=== PATIENT | male | born 1960 | race Caucasian/White ===

== ENCOUNTER 2019-01-06 07:22 | Day surgery (SDC) | payer OTHER ==
[2019-01-01 11:33] VITALS: BMI 51.7
[~2019-01-06 07:22] MED LIST: LACTATED RINGERS 1,000 ML IV SCH
[2019-01-06 08:00] VITALS: RESP 16; TEMP 98.4
[2019-01-06] MEDS ORDERED: LIDOCAINE 1% 20 ML VIAL (10MG/ML) FOR IV START SQ ONE (08:00)
[2019-01-06 08:03] LABS: Glucose,Whole Blood 119 mg/dL (75-99)
[2019-01-06] MEDS ORDERED: PROPOFOL 10 MG/ML 20 ML VIAL IV ONE (08:41)
[2019-01-06] MEDS ORDERED: LIDOCAINE 1% INJ 10MG/ML (20 ML MDV) ONE (08:41)
[2019-01-06] MEDS ORDERED: fentaNYL (PF) 50 MCG/ML 2 ML AMP ONE (08:41)
--- NOTE | 2019-01-06 08:50 | P.GSHP ---
History of Present Illness H&P Date: 01/06/19 Chief Complaint: GERD, GI bleed This is a 58-year-old male who presents today for EGD and colonoscopy. Patient had issues with GERD and GI bleed. Past Medical History Past Medical History: Diabetes Mellitus, GERD/Reflux Additional Past Medical History / Comment(s): Current abdominal pain, hx polyps, states no hx of seizures, takes Depakote for sciatic pain History of Any Multi-Drug Resistant Organisms: None Reported Past Surgical History: Cholecystectomy Additional Past Surgical History / Comment(s): colonoscopy Past Anesthesia/Blood Transfusion Reactions: No Reported Reaction Smoking Status: Former smoker - Past Family History Mother Family Medical History: Cancer Father Family Medical History: Cancer Medications and Allergies Home Medications Medication Instructions Recorded Confirmed Type Divalproex [Depakote] 250 mg PO BID 01/01/19 01/06/19 History Pantoprazole [Protonix] 40 mg PO DAILY 01/01/19 01/06/19 History amLODIPine [Norvasc] 10 mg PO QAM 01/01/19 01/01/19 History metFORMIN HCL [Glucophage] 500 mg PO BID 01/01/19 01/06/19 History Allergies Allergy/AdvReac Type Severity Reaction Status Date / Time No Known Allergies Allergy Verified 01/01/19 11:22 Surgical - Exam Vital Signs Temp Pulse Resp BP Pulse Ox 98.4 F 91 16 151/68 93 L 01/06/19 07:53 01/06/19 07:53 01/06/19 07:53 01/06/19 07:53 01/06/19 07:53 - General well developed, well nourished, no distress - Eyes PERRL - ENT normal pinna - Neck no masses - Respiratory normal expansion - Cardiovascular Rhythm: regular - Abdomen Abdomen: soft, non tender Results - Labs Abnormal Lab Results - Last 24 Hours (Table) 01/06/19 Range/Units 07:57 POC Glucose (mg/dL) 119 H (75-99) mg/dL Assessment and Plan Assessment: GERD, GI bleed. We'll perform EGD and colonoscopy.
--- NOTE | 2019-01-06 09:12 | P.OP ---
Date of Procedure: 01/06/19 Preoperative Diagnosis: GERD GI bleed Postoperative Diagnosis: Antral gastritis Mild esophagitis Procedure(s) Performed: EGD Colonoscopy Anesthesia: MAC Surgeon: Henok Cristobal Pathology: other (Antrum, esophagus) Condition: stable Disposition: PACU Description of Procedure: The patient's placed on the endoscopy table in the lateral position. He received IV sedation. The gastroscope placed oropharynx and passed in the esophagus and into the stomach. Scope was then placed through the pylorus. F irst and second portion of the duodenum appeared normal. (Back the antrum this was mildly inflamed. A biopsies performed. The scope was then retroflexed and remainder of the stomach appeared normal. There is no significant hiatal hernia. The distal esophagus appeared mildly inflamed a biopsy was performed. The GE junction was at 40 cm. The proximal esophagus appeared normal. The scope was withdrawn for patient. Next digital rectal exam was performed. The prostate was symmetrical without nodules. The flexible colonoscope was then placed patient anus passed throughout the entire colon. The ileocecal valve was visualized. Cecum appeared normal. In the ascending colon there was a small polyp seen this removed with the cold forcep. Scope was withdrawn the remainder the ascending colon, transverse colon appeared normal. In the descending and sigmoid colon there is moderate diverticulosis. Scope was then brought back the rectum and this appeared normal. Scope was withdrawn for patient.
[2019-01-06 09:35] VITALS: BP 132/56; PULSE 66
== END 2019-01-06 09:41 | disposition home or self-care (01) ==
LOC: ORWHC2ENDO 07:22
PROVIDERS: ATTEND Surgery
DX: K29.51 Unspecified chronic gastritis with bleeding (principal); K22.70 Barrett's esophagus without dysplasia; K21.0 Gastro-esophageal reflux disease with esophagitis; D12.2 Benign neoplasm of ascending colon; K57.31 Diverticulosis of large intestine without perforation or abscess with bleeding; I10 Essential (primary) hypertension; E11.9 Type 2 diabetes mellitus without complications; M54.30 Sciatica, unspecified side; Z79.899 Other long term (current) drug therapy; Z79.84 Long term (current) use of oral hypoglycemic drugs; Z87.891 Personal history of nicotine dependence
CPT/HCPCS: 45380; 43239; J2001; J3010; J2704; 88305

== ENCOUNTER 2019-06-23 16:55 | Inpatient (IN) | payer OTHER ==
--- NOTE | 2019-06-23 17:24 | ED ---
Abdominal Pain HPI - General Chief Complaint: Abdominal Pain Stated Complaint: Appendicitis Time Seen by Provider: 06/23/19 17:00 Source: patient, RN notes reviewed, old records reviewed Mode of arrival: ambulatory Limitations: no limitations - History of Present Illness Initial Comments: This is a 58-year-old male the ER for evaluation. Said patient resents today for evaluation regarding abdominal pain right lower quadrant abdominal pain. Patient sent in for outpatient computed tomography scan showing positive appendicitis. Patient states his doctor sent him in for evaluation and management by surgery. Patient denies current fever mild nausea no vomiting. Patient has history of gallbladder removal MD Complaint: abdominal pain -: days(s) Location: RLQ Radiation: RLQ Migration to: no migration Severity: moderate Severity scale (1-10): 4 Quality: cramping, stabbing Consistency: constant Improves With: nothing Worsens With: nothing Associated Symptoms: nausea - Related Data Home Medications Medication Instructions Recorded Confirmed Divalproex [Depakote] 250 mg PO BID 01/01/19 01/06/19 Pantoprazole [Protonix] 40 mg PO DAILY 01/01/19 01/06/19 amLODIPine [Norvasc] 10 mg PO QAM 01/01/19 01/01/19 metFORMIN HCL [Glucophage] 500 mg PO BID 01/01/19 01/06/19 Allergies Allergy/AdvReac Type Severity Reaction Status Date / Time No Known Allergies Allergy Verified 06/23/19 16:59 Review of Systems ROS Statement: Those systems with pertinent positive or pertinent negative responses have been documented in the HPI. ROS Other: All systems not noted in ROS Statement are negative. Past Medical History Past Medical History: Diabetes Mellitus, GERD/Reflux Additional Past Medical History / Comment(s): Current abdominal pain, hx polyps, states no hx of seizures, takes Depakote for sciatic pain History of Any Multi-Drug Resistant Organisms: None Reported Past Surgical History: Cholecystectomy Additional Past Surgical History / Comment(s): colonoscopy Past Anesthesia/Blood Transfusion Reactions: No Reported Reaction Past Psychological History: No Psychological Hx Reported Smoking Status: Former smoker Past Alcohol Use History: Occasional Past Drug Use History: None Reported - Past Family History Mother Family Medical History: Cancer Father Family Medical History: Cancer General Exam Limitations: no limitations General appearance: alert, in no apparent distress, obese Head exam: Present: atraumatic, normocephalic, normal inspection Eye exam: Present: normal appearance, PERRL, EOMI. Absent: scleral icterus, conjunctival injection, periorbital swelling ENT exam: Present: normal exam, mucous membranes moist Neck exam: Present: normal inspection. Absent: tenderness, meningismus, lymphadenopathy Respiratory exam: Present: normal lung sounds bilaterally. Absent: respiratory distress, wheezes, rales, rhonchi, stridor Cardiovascular Exam: Present: regular rate, normal rhythm, normal heart sounds. Absent: systolic murmur, diastolic murmur, rubs, gallop, clicks GI/Abdominal exam: Present: soft, tenderness (Right lower quadrant tenderness), normal bowel sounds. Absent: distended, guarding, rebound, rigid Extremities exam: Present: normal inspection, full ROM, normal capillary refill. Absent: tenderness, pedal edema, joint swelling, calf tenderness Back exam: Present: normal inspection Neurological exam: Present: alert, oriented X3, CN II-XII intact Psychiatric exam: Present: normal affect, normal mood Skin exam: Present: warm, dry, intact, normal color. Absent: rash Course Vital Signs 06/23/19 16:57 Temperature 99.1 F Pulse Rate 90 Respiratory 18 Rate Blood Pressure 161/73 O2 Sat by Pulse 96 Oximetry - Reevaluation(s) Reevaluation #1: 06/23/19 17:32 Medical record transfer paperwork and computed tomography scan is reviewed Reevaluation #2: 06/23/19 17:32 Patient currently with pain control Medical Decision Making - Medical Decision Making September the ER for evaluation of severe lower quadrant abdominal pain. Positive appendicitis on computed tomography scan, will not for surgical evaluation and management - Radiology Data Radiology results: report reviewed (CT of pelvis is positive for appendicitis) Disposition Clinical Impression: Abdominal pain, Acute appendicitis Disposition: ADMITTED IP TO THIS HOSP Condition: Good Is patient prescribed a controlled substance at d/c from ED?: No Referrals: Julissa Humphrey DO [Primary Care Provider] - 1-2 days
[2019-06-23] MEDS ORDERED: MORPHINE SULFATE 4 MG/ML SYRINGE IVP PRN (17:25)
[2019-06-23] MEDS ORDERED: SODIUM CHLORIDE 0.9% 1,000 ML IV ONE (17:25)
[2019-06-23] MEDS ORDERED: MORPHINE SULFATE 4 MG/ML SYRINGE IVP STA (17:25)
[2019-06-23] MEDS ORDERED: ONDANSETRON 4 MG/2 ML VIAL IVP STA (17:25)
[2019-06-23] MEDS ORDERED: ONDANSETRON 4 MG/2 ML VIAL IVP PRN (17:25)
[2019-06-23] MEDS ORDERED: PANTOPRAZOLE 40 MG/10 ML VIAL IVP STA (17:26)
[2019-06-23] MEDS ORDERED: SODIUM CHLORIDE 0.9% 1,000 ML IV STA (18:06)
[2019-06-23 18:39] LABS: Basophils # (A) 0.1 k/uL (0-0.2); Basophils % (A) 1 %; Eosinophils # (A) 0.3 k/uL (0-0.7); Eosinophils % (A) 3 %; HCT 44.4 % (39.0-53.0); HGB 15.3 gm/dL (13.0-17.5); Lymphocytes # (A) 2.4 k/uL (1.0-4.8); Lymphocytes % (A) 19 %; MCH 29.3 pg (25.0-35.0); MCHC 34.4 g/dL (31.0-37.0); MCV 85.1 fL (80.0-100.0); Mean Platelet Volume 7.6; Monocytes # (A) 0.9 k/uL (0-1.0); Monocytes % (A) 7 %; Neutrophils # (A) 8.4 k/uL (1.3-7.7); Neutrophils % (A) 68 %; Platelet Count 213 k/uL (150-450); RBC 5.22 m/uL (4.30-5.90); WBC 12.3 k/uL (3.8-10.6)
[2019-06-23 18:49] LABS: ALT 41 U/L (21-72); AST 25 U/L (17-59); African American GFR (CKD) >90 (>60 ml/min/1.73 sqM); Albumin 4.1 g/dL (3.5-5.0); Alkaline Phosphatase 57 U/L (38-126); Amylase 45 U/L (30-110); Anion Gap 11 mmol/L; Blood Urea Nitrogen 19 mg/dL (9-20); Carbon Dioxide 27 mmol/L (22-30); Chloride 101 mmol/L (98-107); Creatine Kinase 77 U/L (55-170); Glucose 112 mg/dL (74-99); Potassium 4.1 mmol/L (3.5-5.1); Sodium 139 mmol/L (137-145); Total Protein 7.2 g/dL (6.3-8.2)
[2019-06-24] MEDS: DIVALPROEX 250 MG TABLET.DR PO SCH ×4 (00:09→22:04)
[2019-06-24] MEDS: amLODIPine 10 MG TAB PO SCH (09:00)
[2019-06-24] MEDS ORDERED: PANTOPRAZOLE 40 MG TABLET PO SCH (09:00)
[2019-06-24] MEDS: PANTOPRAZOLE 40 MG/10 ML VIAL IVP SCH (09:02)
[2019-06-24] MEDS ORDERED: IV FLUID CONTINUATION 1,000 ML IV ONE (09:09)
--- NOTE | 2019-06-24 09:14 | P.HPIM ---
History of Present Illness H&P Date: 06/24/19 Goyo Stallworth is a 58-year-old male with past medical history significant for type 2 diabetes, hypertension, GERD who presents to the hospital on the advice of PCP after outpatient CT noted acute appendicitis. He complains of right lower quadrant pain since Saturday which has waxed and waned in intensity and kept him from sleeping Saturday night. He also complains of poor appetite. Denies fevers chills nausea or vomiting. He saw his PCP yesterday and had an outpatient CT which showed uncomplicated appendicitis. Patient notes he has lost 50 pounds over the past 7 months intentionally through changing his diet to include more vegetables and fiber. He has a past surgical history of cholecys tectomy. Last colonoscopy in October 2018 and unremarkable. In the ED, vitals stable. WBC 12.3. Today he continues to complain of right lower quadrant pain and is eager to have his surgery. Past Medical History Past Medical History: Diabetes Mellitus, GERD/Reflux Additional Past Medical History / Comment(s): Current abdominal pain, hx polyps, states no hx of seizures, takes Depakote for sciatic pain History of Any Multi-Drug Resistant Organisms: None Reported Past Surgical History: Cholecystectomy Additional Past Surgical History / Comment(s): colonoscopy Past Anesthesia/Blood Transfusion Reactions: No Reported Reaction Past Psychological History: No Psychological Hx Reported Smoking Status: Former smoker Past Alcohol Use History: Occasional Additional Past Alcohol Use History / Comment(s): quit smoking 2009, smoked 1ppd from age 23 Past Drug Use History: None Reported - Past Family History Mother Family Medical History: Cancer Father Family Medical History: Cancer Medications and Allergies Home Medications Medication Instructions Recorded Confirmed Type Divalproex [Depakote] 250 mg PO BID 01/01/19 06/23/19 History Pantoprazole [Protonix] 40 mg PO DAILY 01/01/19 06/23/19 History amLODIPine [Norvasc] 10 mg PO DAILY 01/01/19 06/23/19 History metFORMIN HCL [Glucophage] 500 mg PO BID 01/01/19 06/23/19 History Allergies Allergy/AdvReac Type Severity Reaction Status Date / Time No Known Allergies Allergy Verified 06/23/19 17:35 Physical Exam Vitals: Vital Signs Temp Pulse Pulse Resp BP BP Pulse Ox 06/24/19 08:54 98.8 F 62 17 151/68 95 06/24/19 01:35 98.3 F 16 134/72 94 L 06/24/19 01:31 18 06/23/19 19:30 98.4 F 18 134/72 94 L 06/23/19 16:57 99.1 F 90 18 161/73 96 Intake and Output 06/23/19 06/24/19 06/24/19 22:59 06:59 14:59 Other: # Voids 2 2 Weight 140.614 kg General: non toxic, no distress, appears at stated age Derm: warm, dry Head: atraumatic, normocephalic, symmetric Eyes: EOMI, no lid lag, anicteric sclera Mouth: no lip lesion, mucus membranes moist Cardiovascular: S1S2 reg, no murmur, positive posterior tibial pulse bilateral, Lungs: CTA bilateral, no rhonchi, no rales , no accessory muscle use Abdominal: soft, RLQ tenderness palpation, no appreciable organomegaly Ext: no gross muscle atrophy, no edema, no contractures Neuro: CN II-XI grossly intact, no focal neuro deficits Psych: Alert, oriented, appropriate affect Results CBC & Chem 7: 06/23/19 18:22 06/23/19 18:22 Labs: Abnormal Lab Results - Last 24 Hours (Table) 06/23/19 06/23/19 Range/Units 18:22 18:22 WBC 12.3 H (3.8-10.6) k/uL Neutrophils # 8.4 H (1.3-7.7) k/uL Glucose 112 H (74-99) mg/dL Thrombosis Risk Factor Assmnt - Choose All That Apply Each Factor Represents 1 point: Age 41-60 years, Obesity (BMI >25) Thrombosis Risk Factor Assessment Total Risk Factor Score: 2 Thrombosis Risk Factor Assessment Level: Low Risk Assessment and Plan (1) Abdominal pain Current Visit: Yes Status: Acute Code(s): R10.9 - UNSPECIFIED ABDOMINAL PAIN SNOMED Code(s): 63033394 (2) Acute appendicitis Current Visit: Yes Status: Acute Code(s): K35.80 - UNSPECIFIED ACUTE APPENDICITIS SNOMED Code(s): 74668422 (3) GERD (gastroesophageal reflux disease) Current Visit: Yes Status: Acute Code(s): K21.9 - GASTRO-ESOPHAGEAL REFLUX DISEASE WITHOUT ESOPHAGITIS SNOMED Code(s): 851518513 (4) HTN (hypertension) Current Visit: Yes Status: Acute Code(s): I10 - ESSENTIAL (PRIMARY) HYPERTENSION SNOMED Code(s): 35425876 Plan: 1. Acute appendicitis. NPO. Management per surgery. Pain control 2. GERD. Continue Protonix 3. Hypertension. Continue Norvasc
[2019-06-24] MEDS ORDERED: DEXAMETHASONE SOD PHOSPHATE 10 MG/ML 1 ML VIAL IV ONE (09:18)
[2019-06-24] MEDS ORDERED: ONDANSETRON 4 MG/2 ML VIAL IVP ONE (09:18)
[2019-06-24 09:26] LABS: Glucose,Whole Blood 114 mg/dL (75-99)
--- NOTE | 2019-06-24 09:33 | P.GSCN ---
History of Present Illness Consult date: 06/24/19 Reason for Consult: Appendicitis Requesting physician: Henok Cristobal History of present illness: This a 58-year-old male who was diagnosed with appendicitis on CAT scan performed at [facility]. Patient was admitted to Dr. burt. Patient will undergo laparoscopic appendectomy today. The patient has had complaints of intermittent right lower quadrant pain for several months. Past Medical History Past Medical History: Diabetes Mellitus, GERD/Reflux Additional Past Medical History / Comment(s): Current abdominal pain, hx polyps, states no hx of seizures, takes Depakote for sciatic pain History of Any Multi-Drug Resistant Organisms: None Reported Past Surgical History: Cholecystectomy Additional Past Surgical History / Comment(s): colonoscopy Past Anesthesia/Blood Transfusion Reactions: No Reported Reaction Past Psychological History: No Psychological Hx Reported Smoking Status: Former smoker Past Alcohol Use History: Occasional Additional Past Alcohol Use History / Comment(s): quit smoking 2009, smoked 1ppd from age 23 Past Drug Use History: None Reported - Past Family History Mother Family Medical History: Cancer Father Family Medical History: Cancer Medications and Allergies Home Medications Medication Instructions Recorded Confirmed Type Divalproex [Depakote] 250 mg PO BID 01/01/19 06/23/19 History Pantoprazole [Protonix] 40 mg PO DAILY 01/01/19 06/23/19 History amLODIPine [Norvasc] 10 mg PO DAILY 01/01/19 06/23/19 History metFORMIN HCL [Glucophage] 500 mg PO BID 01/01/19 06/23/19 History Allergies Allergy/AdvReac Type Severity Reaction Status Date / Time No Known Allergies Allergy Verified 06/23/19 17:35 Surgical - Exam Vital Signs Temp Pulse Resp BP Pulse Ox 99.1 F 90 18 161/73 96 06/23/19 16:57 06/23/19 16:57 06/23/19 16:57 06/23/19 16:57 06/23/19 16:57 - General Morbid obesity BMI 46 well developed, well nourished - Eyes PERRL - ENT normal pinna - Neck no masses - Respiratory normal expansion - Cardiovascular Rhythm: regular - Abdomen Mild right lower quadrant pain Abdomen: soft Results - Labs 06/23/19 18:22 06/23/19 18:22 Abnormal Lab Results - Last 24 Hours (Table) 06/23/19 06/23/1919 Range/Units 18:22 18:22 09:15 WBC 12.3 H (3.8-10.6) k/uL Neutrophils # 8.4 H (1.3-7.7) k/uL Glucose 112 H (74-99) mg/dL POC Glucose (mg/dL) 114 H (75-99) mg/dL Diabetes panel 06/23/19 Range/Units 18:22 Sodium 139 (137-145) mmol/L Potassium 4.1 (3.5-5.1) mmol/L Chloride 101 (98-107) mmol/L Carbon Dioxide 27 (22-30) mmol/L BUN 19 (9-20) mg/dL Creatinine 0.80 (0.66-1.25) mg/dL Glucose 112 H (74-99) mg/dL Calcium 9.0 (8.4-10.2) mg/dL AST 25 (17-59) U/L ALT 41 (21-72) U/L Alkaline Phosphatase 57 (38-126) U/L Total Protein 7.2 (6.3-8.2) g/dL Albumin 4.1 (3.5-5.0) g/dL Calcium panel 06/23/19 Range/Units 18:22 Calcium 9.0 (8.4-10.2) mg/dL Albumin 4.1 (3.5-5.0) g/dL Pituitary panel 06/23/19 Range/Units 18:22 Sodium 139 (137-145) mmol/L Potassium 4.1 (3.5-5.1) mmol/L Chloride 101 (98-107) mmol/L Carbon Dioxide 27 (22-30) mmol/L BUN 19 (9-20) mg/dL Creatinine 0.80 (0.66-1.25) mg/dL Glucose 112 H (74-99) mg/dL Calcium 9.0 (8.4-10.2) mg/dL Adrenal panel 06/23/19 Range/Units 18:22 Sodium 139 (137-145) mmol/L Potassium 4.1 (3.5-5.1) mmol/L Chloride 101 (98-107) mmol/L Carbon Dioxide 27 (22-30) mmol/L BUN 19 (9-20) mg/dL Creatinine 0.80 (0.66-1.25) mg/dL Glucose 112 H (74-99) mg/dL Calcium 9.0 (8.4-10.2) mg/dL Total Bilirubin 1.0 (0.2-1.3) mg/dL AST 25 (17-59) U/L ALT 41 (21-72) U/L Alkaline Phosphatase 57 (38-126) U/L Total Protein 7.2 (6.3-8.2) g/dL Albumin 4.1 (3.5-5.0) g/dL Assessment and Plan Assessment: Acute appendicitis diagnosed on CAT scan. Patient will undergo laparoscopic appendectomy
[2019-06-24] MEDS ORDERED: HEPARIN SODIUM,PORCINE 5,000 UNIT/ML 1 ML VIAL SQ ONE (09:38)
[2019-06-24] MEDS ORDERED: LIDOCAINE 1% INJ 10MG/ML (20 ML MDV) ONE (09:40)
[2019-06-24] MEDS ORDERED: DEXAMETHASONE SOD PHOS (MDV) 100 MG/10 ML VIAL ONE (09:40)
[2019-06-24] MEDS ORDERED: GLYCOPYRROLATE 0.2 MG/ML 2 ML VIAL ONE (09:40)
[2019-06-24] MEDS ORDERED: MIDAZOLAM 2 MG/2 ML VIAL ONE (09:40)
[2019-06-24] MEDS ORDERED: NEOSTIGMINE 1 MG/ML 10 ML VIAL ONE (09:40)
[2019-06-24] MEDS ORDERED: ROCURONIUM BROMIDE 10 MG/ML 10 ML VIAL IV ONE (09:40)
[2019-06-24] MEDS ORDERED: PROPOFOL 10 MG/ML 20 ML VIAL IV ONE (09:40)
[2019-06-24] MEDS ORDERED: fentaNYL (PF) 50 MCG/ML 2 ML AMP ONE (09:40)
[2019-06-24] MEDS ORDERED: BUPIVACAIN-EPI 0.25%-1:200,000 30 ML VIAL SQ ONE (10:14)
[2019-06-24] MEDS ORDERED: LACTATED RINGERS 1,000 ML IV ONE ×2 (10:41→11:04)
[2019-06-24] MEDS ORDERED: traMADol 50 MG TAB PO PRN (11:04)
[2019-06-24] MEDS ORDERED: NALOXONE 0.4 MG/ML 1 ML VIAL IV PRN (11:04)
[2019-06-24] MEDS ORDERED: HYDROmorphone 0.5 MG/0.5 ML SYRINGE IVP PRN (11:04)
[2019-06-24] MEDS ORDERED: ACETAMINOPHEN TAB 325 MG TAB PO PRN (11:04)
--- NOTE | 2019-06-24 11:04 | P.OP ---
Date of Procedure: 06/24/19 Preoperative Diagnosis: Acute appendicitis Postoperative Diagnosis: Acute and chronic appendicitis Procedure(s) Performed: Laparoscopic appendectomy Anesthesia: KESHIA Surgeon: Henok Cristobal Estimated Blood Loss (ml): 5 Pathology: other (Appendix) Condition: stable Disposition: PACU Description of Procedure: The patient's placed on the operating table in the supine position. The patient received general anesthesia. The abdomen was prepped and draped in the usual sterile fashion. The skin was anesthetized 1% local Xylocaine at the trocar sites. Using an 11 blade the skin was incised at the umbilicus. The umbilicus was grasped with a [place] clamp and then a Veress needle was placed into the peritoneal cavity. Position of the Veress needle was confirmed with positive drop test. After adequate insufflation a 5 mm trocar was placed into the peritoneal cavity. The abdomen was further insufflated. And then the laparoscope was placed in the peritoneal cavity. Next a 5 mm trocar was placed in the midline suprapubic position. And then a 10 mm trocar was placed in the midline epigastric position. The patient was rotated with the right side up and in Trendelenburg. The appendix was visualized. The appendix appeared to be inflamed. The appendix was grasped and then using the Harmonic scissors the mesoappendix was divided. A PDS Endoloop was then placed around the base of the appendix. And then the appendix was divided using Harmonic scissors. The appendix was placed into an Endo Catch and brought out through the 10 mm trocar site. The abdomen was irrigated. There is no bleeding seen. The trochars withdrawn. The skin was closed interrupted 3-0 Monocryl suture. Dermabond dressing was applied. Patient was sent to recovery room in stable condition.
[2019-06-24] MEDS: HYDROmorphone 1 MG/ML 1 ML SYRINGE IVP ONE ×2 (11:05→11:11)
[2019-06-24 11:17] LABS: Glucose,Whole Blood 126 mg/dL (75-99)
[2019-06-24] MEDS: KETOROLAC 30 MG/ML 1 ML VIAL IVP SCH ×2 (11:25→19:07)
[2019-06-24] MEDS: DOCUSATE 100 MG CAP PO SCH (22:04)
[2019-06-24] MEDS: HYDROcodone/APAP 5-325MG 1 EACH TAB PO PRN (22:04)
[2019-06-25] MEDS: KETOROLAC 30 MG/ML 1 ML VIAL IVP SCH ×3 (00:30→11:15)
[2019-06-25 01:42] VITALS: PULSE 62
[2019-06-25] MEDS: HYDROcodone/APAP 5-325MG 1 EACH TAB PO PRN ×2 (05:21→11:13)
[2019-06-25 07:59] VITALS: BP 161/62; RESP 12; TEMP 98
[2019-06-25] MEDS ORDERED: ENOXAPARIN 40 MG/0.4 ML SYRINGE SQ SCH (09:00)
[2019-06-25] MEDS: DOCUSATE 100 MG CAP PO SCH (09:34)
[2019-06-25] MEDS: amLODIPine 10 MG TAB PO SCH (09:34)
[2019-06-25] MEDS: PANTOPRAZOLE 40 MG/10 ML VIAL IVP SCH (09:34)
[2019-06-25] MEDS: DIVALPROEX 250 MG TABLET.DR PO SCH (09:34)
--- NOTE | 2019-06-25 14:48 | P.DS ---
Providers Date of admission: 06/23/19 17:25 Expected date of discharge: 06/25/19 Attending physician: Henok Cristobal Consults: 06/23/19 18:38 Consult Physician Routine Consulting Provider: Alonso Humphrey Consult Reason/Comments: known Do you want consulting provider notified?: Yes 06/24/19 09:34 Consult Physician Routine Consulting Provider: Henok Cristobal Consult Reason/Comments: Acute appendicitis Do you want consulting provider notified?: Already Contacted Primary care physician: Julissa Humphrey [facility] Course: 58-year-old male presented to the emergency room a chief complaint of abdominal pain. Patient was found to have acute appendicitis. Patient underwent laparoscopic appendectomy with Dr. Cristobal on 06/24/2019. Patient is doing well postoperatively without any immediate complications. Pain is controlled on oral medications. Vital signs have been stable. Tolerating diet without nausea or vomiting. He is stable for discharge home today per Dr. Cristobal. Please see EMR for further hospital course details. Discharge diagnosis 1. Abdominal pain 2. Acute appendicitis Nurse practitioner note has been reviewed by physician. Signing provider agrees with the documented findings, assessment, and plan of care. Patient Condition at Discharge: Stable Plan - Discharge Summary Discharge Rx Participant: No New Discharge Prescriptions: New Hydrocodone/Acetaminophen [Ely 5-325] 1 tab PO Q6HR PRN 3 Days #12 tab PRN Reason: Pain Levofloxacin [Levaquin] 750 mg PO DAILY #7 tab No Action metFORMIN HCL [Glucophage] 500 mg PO BID Divalproex [Depakote] 250 mg PO BID amLODIPine [Norvasc] 10 mg PO DAILY Pantoprazole [Protonix] 40 mg PO DAILY Discharge Medication List Divalproex [Depakote] 250 mg PO BID 01/01/19 [History] Pantoprazole [Protonix] 40 mg PO DAILY 01/01/19 [History] amLODIPine [Norvasc] 10 mg PO DAILY 01/01/19 [History] metFORMIN HCL [Glucophage] 500 mg PO BID 01/01/19 [History] Hydrocodone/Acetaminophen [Ely 5-325] 1 tab PO Q6HR PRN 3 Days #12 tab 06/25/19 [Rx] Levofloxacin [Levaquin] 750 mg PO DAILY #7 tab 06/25/19 [Rx] Follow up Appointment(s)/Referral(s): Julissa Humphrey DO [Primary Care Provider] - 06/29/19 9:00 am Henok Cristobal MD [STAFF PHYSICIAN] - 07/02/19 3:30 pm Patient Instructions/Handouts: Laparoscopic Appendectomy (DC) Activity/Diet/Wound Care/Special Instructions: No driving while taking [place] No lifting over 10 pounds You may shower. No soaking or tub baths Very light activity until you are reevaluated at your follow up appointment with your surgeon
== END 2019-06-25 14:32 | disposition home or self-care (01) | DRG 342 ==
LOC: EC 16:55 → OBSVTOIN 17:25 → 4SSUR 17:25
PROVIDERS: ADMIT Surgery; ATTEND Surgery
PROC: 0DTJ4ZZ Resection of Appendix, Percutaneous Endoscopic Approach (ICD-10-PCS; principal; 2019-06-24 08:30)
DX: K35.80 Unspecified acute appendicitis (principal); Z68.42 Body mass index [BMI] 45.0-49.9, adult; E66.01 Morbid (severe) obesity due to excess calories; E11.9 Type 2 diabetes mellitus without complications; I10 Essential (primary) hypertension; K21.9 Gastro-esophageal reflux disease without esophagitis; M54.30 Sciatica, unspecified side; Z87.891 Personal history of nicotine dependence; Z79.84 Long term (current) use of oral hypoglycemic drugs; Z79.899 Other long term (current) drug therapy; Z90.49 Acquired absence of other specified parts of digestive tract
CPT/HCPCS: 80053; 82150; 82550; 83605; 83690; 85025; 88304; 96374; 96375; 99285

== ENCOUNTER 2021-05-26 06:58 | Day surgery (SDC) | payer OTHER ==
[2021-05-23 09:28] VITALS: BMI 48.7
[2021-05-26 07:17] VITALS: TEMP 98.8
[2021-05-26] MEDS ORDERED: LIDOCAINE 1% (10MG/ML) FOR IV START INTRADERMA ONE (07:28)
[2021-05-26] MEDS ORDERED: LACTATED RINGERS 1,000 ML IV ONE (07:28)
[2021-05-26 07:29] LABS: Glucose,Whole Blood 129 mg/dL (75-99)
[2021-05-26] MEDS ORDERED: KETAMINE 10 MG/ML 20 ML VIAL ONE (07:54)
[2021-05-26] MEDS ORDERED: MIDAZOLAM 2 MG/2 ML VIAL ONE (07:54)
[2021-05-26] MEDS ORDERED: PROPOFOL 10 MG/ML 20 ML VIAL IV ONE (07:54)
--- NOTE | 2021-05-26 07:59 | P.GSHP ---
History of Present Illness H&P Date: 05/26/21 Chief Complaint: History of colon polyps Is a 60-year-old male presents today for colonoscopy. Patient history of previous colonic polyps. He denies any significant GI complaints Past Medical History Past Medical History: Diabetes Mellitus, Hypertension Additional Past Medical History / Comment(s): hx colon polyps History of Any Multi-Drug Resistant Organisms: None Reported Past Surgical History: Cholecystectomy Additional Past Surgical History / Comment(s): colonoscopies Past Anesthesia/Blood Transfusion Reactions: No Reported Reaction Past Psychological History: No Psychological Hx Reported Smoking Status: Former smoker Past Alcohol Use History: Occasional Additional Past Alcohol Use History / Comment(s): quit smoking 2009, smoked 1ppd from age 23 Past Drug Use History: None Reported - Past Family History Mother Family Medical History: Cancer Additional Family Medical History / Comment(s): lung cancer Father Family Medical History: Cancer Additional Family Medical History / Comment(s): colon cancer Medications and Allergies Home Medications Medication Instructions Recorded Confirmed Type amLODIPine [Norvasc] 10 mg PO DAILY 01/01/19 05/23/21 History Lisinopril [Zestril] 10 mg PO DAILY 05/23/21 05/23/21 History metFORMIN HCL [Glucophage XR] 750 mg PO BID 05/23/21 05/26/21 History Allergies Allergy/AdvReac Type Severity Reaction Status Date / Time No Known Allergies Allergy Verified 05/23/21 09:13 Surgical - Exam Vital Signs Temp Pulse Resp BP Pulse Ox 98.8 F 86 18 155/73 93 L 05/26/21 07:15 05/26/21 07:15 05/26/21 07:15 05/26/21 07:15 05/26/21 07:15 - General well developed, well nourished, no distress - Eyes PERRL - ENT normal pinna - Neck no masses - Respiratory normal expansion - Cardiovascular Rhythm: regular - Abdomen Abdomen: soft, non tender Results - Labs Abnormal Lab Results - Last 24 Hours (Table) 05/26/21 Range/Units 07:22 POC Glucose (mg/dL) 129 H (75-99) mg/dL Assessment and Plan Assessment: History of colonic Polyps. We'll perform colonoscopy
--- NOTE | 2021-05-26 08:16 | P.OP ---
Date of Procedure: 05/26/21 Preoperative Diagnosis: History of colon polyps Postoperative Diagnosis: Rectal polyp Diverticulosis Procedure(s) Performed: Colonoscopy Anesthesia: MAC Surgeon: Henok Cristobal Pathology: other (Rectal polyp) Condition: stable Disposition: PACU Description of Procedure: The patient was placed on the endoscopy table in the lateral position. He received IV sedation. Digital rectal exam was performed which revealed no abnormalities. The prostate was symmetric without nodules. Flexible colonoscope was then placed patient anus passed rotator colon. Ileocecal valve was visualized. The cecum, ascending and transverse colon appeared normal. The descending; had significant diverticular changes. Scope was then brought back the rectum and a [place] polyp was seen. Removed with snare. Scope was then brought back through the anus there is no internal or external hemorrhoids. The patient
[2021-05-26 08:18] VITALS: RESP 16
[2021-05-26 08:31] VITALS: BP 154/89; PULSE 76
== END 2021-05-26 08:59 | disposition home or self-care (01) ==
LOC: ORWHC2ENDO 06:58
PROVIDERS: ATTEND Surgery
DX: K62.1 Rectal polyp (principal); D12.8 Benign neoplasm of rectum; E11.9 Type 2 diabetes mellitus without complications; Z79.84 Long term (current) use of oral hypoglycemic drugs; I10 Essential (primary) hypertension; Z87.891 Personal history of nicotine dependence; Z86.010 Personal history of colon polyps; Z90.49 Acquired absence of other specified parts of digestive tract; Z80.1 Family history of malignant neoplasm of trachea, bronchus and lung
CPT/HCPCS: 45385; 88305; J2250; J2704

== ENCOUNTER → 2021-07-17 | Outpatient (CLI) | payer OTHER ==
--- NOTE | 2021-07-17 12:33 | P.STRESS ---
- Stress Test Note Stress Test Results/Findings: Exam Performed: NM stress cardiolite complete Exam Date: 07/17/21 Reason for Exam: Shortness of breath Height: 5 ft 9 in Weight: 154.221 kg Protocol: Thanh Stage: 3 Duration of Exercise: 7:30 Resting Heart Rate: 88 Resting Blood Pressure: 183/83 Maximum Achieved Heart Rate: 144 Maximum Achieved Blood Pressure: 213/57 85% PMHR: 137 100% PMHR: 161 METS: na Technologist Comment: Stress Test Results/Findings: Patient underwent exercise stress Cardiolite with a Thanh protocol treadmill stress test. Patient exercised into Stage 3 for a total of 7 minutes and 30 seconds. Patient's maximum heart rate was 144 which represented 89% age- predicted maximum heart rate. There was no chest pain noted with stress. Stress EKG findings: At baseline patient's EKG showed sinus rhythm, normal axis, no significant ST or T wave abnormalities. At peak exercise, EKG showed significant change from base line. Conclusions: 1. Normal EKG response to exercise without evidence of inducible ischemia. 2. Fair exercise capacity. 3. Nuclear portion to be reported separately
--- NOTE | 2021-07-18 07:29 | NM ---
EXAMINATION TYPE: NM stress cardiolite complete DATE OF EXAM: 07/17/2021 COMPARISON: NONE HISTORY: Chest pain, short of breath TECHNIQUE: After the intravenous administration of 10.8 mCi Tc 99m Sestamibi - Cardiolite resting SP ECT images acquired 60 minutes post injection. At peak stress 25.9 mCi Tc 99m Sestamibi - Stress images obtained 15 minutes post injection The patient was stressed Thanh protocol . Greater than 85% predicted maximum heart rate was achieved. FINDINGS: There is a large fixed defect along the inferior wall on both rest and stress images. This has some extends into the lateral wall near the cardiac apex. Findings appear matched. Stress-induced ischemic changes are not identified. No reversible stress defects on Spect images Wall motion is normal. Ejection fraction is calculated to be 50 %. IMPRESSION: 1. Large fixed defect along the inferior wall and some extent into the lateral wall near the cardiac apex compatible with prior infarct. Correlate with EKG changes. 2. Borderline ejection fraction diminished at 50%. Normal is 50%.
--- NOTE | 2021-07-18 08:24 | EST ---
Stress Test Results/Findings: Exam Performed: [place] stress cardiolite complete Exam Date: 07/17/21 Reason for Exam: Shortness of breath Height: 5 ft 9 in Weight: 154.221 kg Protocol: Thanh Stage: 3 Duration of Exercise: 7:30 Resting Heart Rate: 88 Resting Blood Pressure: 183/83 Maximum Achieved Heart Rate: 144 Maximum Achieved Blood Pressure: 213/57 85% PMHR: 137 100% PMHR: 161 METS: na Technologist Comment: Stress Test Results/Findings: Patient underwent exercise stress Cardiolite with a Thanh protocol treadmill stress test. Patient exercised into Stage 3 for a total of 7 minutes and 30 seconds. Patient's maximum heart rate was 144 which represented 89% age- predicted maximum heart rate. There was no chest pain noted with stress. Stress EKG findings: At baseline patient's EKG showed sinus rhythm, normal axis, no significant ST or T wave abnormalities. At peak exercise, EKG showed significant change from baseline. Conclusions: 1. Normal EKG response to exercise without evidence of inducible ischemia. 2. Fair exercise capacity. 3. Nuclear portion to be reported separately MTDD
== END | disposition home or self-care (01) ==
LOC: RADNMMAIN 08:41
PROVIDERS: ATTEND Family Medicine
DX: R06.02 Shortness of breath (principal); R07.9 Chest pain, unspecified
CPT/HCPCS: 93017; 78452; A9500

== ENCOUNTER → 2023-04-30 | Outpatient (CLI) | payer OTHER ==
[2023-04-30 16:28] LABS: Appearance,Urine Clear (Clear); Bilirubin,Urine Negative (Negative); Blood,Urine Negative (Negative); Color,Urine Yellow (Yellow); Ketones,Urine Negative (Negative); Nitrite,Urine Negative (Negative); PH, Urine 5.5; Specific Gravity,Urine 1.019 (1.001-1.030); Urobilinogen,Urine 0.2 E.U./DL
[2023-04-30 16:37] LABS: Basophils # (A) 0.06 X 10*3/uL (0.00-0.10); Basophils % (A) 0.9 %; Eosinophils # (A) 0.33 X 10*3/uL (0.04-0.35); Eosinophils % (A) 4.8 %; HCT 45.6 % (39.6-50.0); HGB 15.6 d/dL (12.0-15.0); Lymphocytes # (A) 2.06 X 10*3/uL (0.90-5.00); MCH 30.4 pg (27.0-32.0); MCHC 34.2 d/dL (32.0-37.0); MCV 88.7 FL (80.0-97.0); Mean Platelet Volume 10.5 FL (9.5-12.2); Monocytes # (A) 0.86 X 10*3/uL (0.20-1.00); Monocytes % (A) 12.5 %; NRBC Per 100 WBC 0 X 10*3/uL (0.00-0.01); Neutrophils # (A) 3.54 X 10*3/uL (1.80-7.70); Neutrophils % (A) 51.7 %; Platelet Count 185 X 10*3/uL (140-440); RBC 5.14 X 10*6/uL (4.40-5.60); RDW 13.2 % (11.5-14.5); WBC 6.86 X 10*3/uL (4.50-10.00)
[2023-04-30 16:55] LABS: BUN/Creat Ratio 25.62 Ratio (12.00-20.00); Blood Urea Nitrogen 20.5 mg/dL (9.0-27.0); Calcium 9.1 mg/dL (8.7-10.3); Carbon Dioxide 25.1 mmol/L (21.6-31.8); Chloride 101 mmol/L (96-109); Glucose 127 mg/dL (70-110); Potassium 4.8 mmol/L (3.5-5.5); Sodium 137 mmol/L (135-145)
== END | disposition home or self-care (01) ==
LOC: LABPAT 09:11
PROVIDERS: ATTEND Urology
DX: Z01.812 Encounter for preprocedural laboratory examination (principal); C61 Malignant neoplasm of prostate; R35.0 Frequency of micturition
CPT/HCPCS: 80048; 81003; 85025; 87086

== ENCOUNTER 2024-02-20 06:49 | Day surgery (SDC) | payer OTHER ==
[2024-02-20 07:23] LABS: Glucose,Whole Blood 127 mg/dL (70-110)
[2024-02-20] MEDS: LACTATED RINGERS 1,000 ML IV ONE ×2 (07:24→08:05)
[2024-02-20 07:50] VITALS: TEMP 98
[2024-02-20] MEDS ORDERED: PROPOFOL 10 MG/ML 20 ML VIAL IV ONE (08:06)
--- NOTE | 2024-02-20 08:18 | P.GSHP ---
History of Present Illness H&P Date: 02/20/24 Chief Complaint: family history of colon cancer this a 63-year-old male presents today for colonoscopy. Patient has a strong family. Colon cancer. His father had rectal cancer. Past Medical History Past Medical History: Diabetes Mellitus, Hypertension, Prostate Disorder Additional Past Medical History / Comment(s): hx colon polyps, prostate cancer - radiation complete 06/12 History of Any Multi-Drug Resistant Organisms: None Reported Past Surgical History: Cholecystectomy Additional Past Surgical History / Comment(s): colonoscopies, space O[facility] 2022 Past Anesthesia/Blood Transfusion Reactions: No Reported Reaction Smoking Status: Former smoker - Past Family History Mother Family Medical History: Cancer Additional Family Medical History / Comment(s): lung cancer Father Family Medical History: Cancer Additional Family Medical History / Comment(s): colon cancer Medications and Allergies Home Medications Medication Instructions Recorded Confirmed Type amLODIPine [Norvasc] 10 mg PO QAM 01/01/19 02/18/24 History lisinopriL [Zestril] 10 mg PO QAM 05/23/21 02/18/24 History Semaglutide [Ozempic] 2 mg SQ TUFR 05/01/23 02/18/24 History Celecoxib [CeleBREX] 200 mg PO DAILY 02/18/24 02/18/24 History Tamsulosin HCl [Flomax] 0.4 mg PO QAM 02/18/24 02/18/24 History Allergies Allergy/AdvReac Type Severity Reaction Status Date / Time No Known Allergies Allergy Verified 02/18/24 14:10 Surgical - Exam Vital Signs Temp Pulse Resp BP Pulse Ox 98 F 78 18 142/78 97 02/20/24 07:24 02/20/24 07:24 02/20/24 07:24 02/20/24 07:24 02/20/24 07:24 - General well developed, well nourished, no distress - Eyes PERRL - ENT normal pinna - Neck no masses - Respiratory normal expansion - Cardiovascular Rhythm: regular - Abdomen Abdomen: soft, non tender Results - Labs Abnormal Lab Results - Last 24 Hours (Table) 02/20/24 Range/Units 07:20 POC Glucose (mg/dL) 127 H (70-110) mg/dL Assessment and Plan Assessment: family history of colon cancer. We'll perform colonoscopy.. We'll perform colonoscopy
--- NOTE | 2024-02-20 08:20 | P.OP ---
Date of Procedure: 02/20/24 Preoperative Diagnosis: family history colon cancer Postoperative Diagnosis: normal colonoscopy Procedure(s) Performed: colonoscopy Anesthesia: MAC Surgeon: Henok Cristobal Pathology: none sent Condition: stable Disposition: PACU Description of Procedure: PROCEDURE: The patient was placed on the endoscopy table in the lateral position. Digital rectal examination was performed which revealed no abnormalities. The prostate was symmetrical without nodules. Flexible colonoscope was then placed in the patient's anus and passed throughout the entire colon. The ileocecal valve was visualized. The cecum, ascending, transverse, descending and sigmoid colon were normal. The rectum was normal as well. There were no masses, polyps or diverticula noted in the entire colon. SUMMARY OF FINDINGS: Normal colonoscopy.
[2024-02-20 09:23] VITALS: BP 139/86; PULSE 80; RESP 18
== END 2024-02-20 08:58 | disposition home or self-care (01) ==
LOC: ORWHC2ENDO 06:49
PROVIDERS: ATTEND Surgery
DX: Z12.11 Encounter for screening for malignant neoplasm of colon (principal); E11.9 Type 2 diabetes mellitus without complications; I10 Essential (primary) hypertension; G47.33 Obstructive sleep apnea (adult) (pediatric); E66.01 Morbid (severe) obesity due to excess calories; Z79.1 Long term (current) use of non-steroidal anti-inflammatories (NSAID); Z85.46 Personal history of malignant neoplasm of prostate; Z87.891 Personal history of nicotine dependence; Z90.49 Acquired absence of other specified parts of digestive tract; Z80.0 Family history of malignant neoplasm of digestive organs
CPT/HCPCS: 45378; J2704

== ENCOUNTER → 2024-12-30 | Outpatient (CLI) | payer OTHER | END | disposition home or self-care (01) | LOC: LABWHC1 11:14 | PROVIDERS: ATTEND Radiology Radiation Oncology | DX: C61 Malignant neoplasm of prostate (principal) | CPT/HCPCS: 36415; 84153 ==

== ENCOUNTER → 2025-01-28 | Outpatient (CLI) | payer OTHER ==
--- NOTE | 2025-01-28 14:30 | PE ---
EXAMINATION TYPE: PET CT fusion skull to thigh DATE OF EXAM: 01/28/2025 COMPARISON: NONE HISTORY: Prostate cancer originally diagnosed in February 2023 treated with radiation therapy TECHNIQUE: Following the intravenous administration of 6.32 mCi of Ga-68 Illucix, whole body images are performed from the gallbladder to the midthigh. Images are reviewed on the computer in the coron al, axial, and sagittal planes. Reconstructed rotating images are created on independent workstation and reviewed on the computer. A localization and attenuation correction CT is performed in conjunc tion with the PET scan. SCAN: Subsequent Scan FINDINGS: Exam slightly suboptimal secondary to patient's large body habitus SKULL BASE AND NECK: No areas of suspicious radiotracer uptake. CHEST, MEDIASTINUM, AND HILAR REGION: No suspicious radiotracer uptake. ABDOMEN AND PELVIS: Prostate gland is small in size. There is new radiotracer uptake in the right asp ect near images 256 through 260. No abnormal adjacent radiotracer uptake to suggest pelvic adenopathy . No additional areas of suspicious abnormal radiotracer uptake. OSSEOUS STRUCTURES: No definitive areas of abnormal radiotracer uptake. OTHER CT: Cholecystectomy clips are present. Poorly distended bladder is seen. There is spondylolisth esis and disc space narrowing near the cervicothoracic junction. Distal colonic diverticulosis is pre sent. IMPRESSION: Suboptimal study with abnormal radiotracer uptake suggesting active neoplasm in the right aspect of the small remnant prostate gland. No adjacent suspicious pelvic adenopathy or distal metas tatic disease seen. [facility], , 01/28/2025 2:28 PM
== END | disposition home or self-care (01) ==
LOC: RADPETMAIN 11:41
PROVIDERS: ATTEND Radiology Radiation Oncology
DX: C61 Malignant neoplasm of prostate (principal)
CPT/HCPCS: 78815; A9596